=== PATIENT | female | born 1975 | race Caucasian/White ===

== ENCOUNTER 2016-06-26 13:41 | Emergency (ER) | payer OTHER | END 2016-06-26 16:17 | disposition home or self-care (01) | LOC: ER 13:41 | DX: S33.5XXA Sprain of ligaments of lumbar spine, initial encounter (principal); S13.4XXA Sprain of ligaments of cervical spine, initial encounter; S93.601A Unspecified sprain of right foot, initial encounter; W01.0XXA Fall on same level from slipping, tripping and stumbling without subsequent striking against object, initial encounter; Y92.019 Unspecified place in single-family (private) house as the place of occurrence of the external cause; J45.909 Unspecified asthma, uncomplicated; F17.210 Nicotine dependence, cigarettes, uncomplicated; M54.2 Cervicalgia; M54.9 Dorsalgia, unspecified; Z88.2 Allergy status to sulfonamides; Z88.6 Allergy status to analgesic agent; Z79.899 Other long term (current) drug therapy | CPT/HCPCS: 72040; 72100; 73620; 99283 ==

== ENCOUNTER 2016-09-08 13:22 | Emergency (ER) | payer OTHER ==
[2016-09-08 14:24] LABS: BASO # 0.1 10_X3_uL (0.0-0.1); BASO % 0.4 % (0.1-1.2); EOS # 0.2 10_X3_uL (0.0-0.4); EOS % 1.3 % (0.7-5.8); GRAN # 9.8 10_X3_uL (1.6-6.1); GRAN % 77.6 % (34.0-71.1); HEMATOCRIT 42.1 % (34-45); HEMOGLOBIN 14.4 g/dL (11.2-15.7); LYMPH # 1.9 10_X3_uL (1.2-3.7); LYMPH % 14.9 % (19.3-51.7); MEAN CORPUSCULAR HEMOGLOBIN 31.4 pg (27.0-33.0); MEAN CORPUSCULAR HGB CONC 34.2 g/dL (32.0-36.0); MEAN CORPUSCULAR VOLUME 91.9 fL (79-95); MEAN PLATELET VOLUME 9.6 fl (7.5-11.5); MONO # 0.7 10_X3_uL (0.2-0.9); MONO % 5.8 % (4.7-12.5); PLATELET COUNT 314 x10_3/uL (182-369); RED BLOOD COUNT 4.58 x10_6/uL (3.9-5.2); RED CELL DISTRIBUTION WIDTH 13.3 % (11.7-14.4); WHITE BLOOD COUNT 12.7 x10_3/uL (4.0-10.0)
[2016-09-08 14:38] LABS: ALBUMIN 4.6 gm/dL (3.4-5.0); ALKALINE PHOSPHATASE 54 U/L (50-136); ALT/SGPT 12 U/L (3.5-33.9); AMYLASE 43 U/L (15.62-74.58); AST/SGOT 14 U/L (7.04-26.96); BILIRUBIN,TOTAL 0.52 mg/dL (0.0-1.0); BLOOD UREA NITROGEN 9 mg/dL (7-18); CALCIUM 9.3 mg/dL (8.7-10.7); CARBON DIOXIDE 23 mmol/L (21-32); CREATININE 0.7 mg/dL (0.6-1.3); GLUCOSE,RANDOM 106 mg/dL (70-99); LIPASE 21 U/L (6.75-60.75); POTASSIUM 4.2 mmol/L (3.5-5.1); SODIUM 133 mmol/L (136-145); TOTAL PROTEIN 7.8 gm/dL (6.4-8.2)
== END 2016-09-08 17:40 | disposition home or self-care (01) ==
LOC: ER 13:22
PROVIDERS: Emergency Medicine
DX: R10.32 Left lower quadrant pain (principal); R10.31 Right lower quadrant pain; R11.0 Nausea; J45.909 Unspecified asthma, uncomplicated; Z98.51 Tubal ligation status; F17.210 Nicotine dependence, cigarettes, uncomplicated
CPT/HCPCS: 36415; 80053; 82150; 83690; 85025; 96372; 99070; 99284-25

== ENCOUNTER 2016-09-22 14:38 | Emergency (ER) | payer OTHER | END 2016-09-22 17:07 | disposition home or self-care (01) | LOC: ER 14:38 | DX: S40.012A Contusion of left shoulder, initial encounter (principal); S80.02XA Contusion of left knee, initial encounter; S90.32XA Contusion of left foot, initial encounter; S16.1XXA Strain of muscle, fascia and tendon at neck level, initial encounter; T14.8 Other injury of unspecified body region; V03.00XA Pedestrian on foot injured in collision with car, pick-up truck or van in nontraffic accident, initial encounter; M51.9 Unspecified thoracic, thoracolumbar and lumbosacral intervertebral disc disorder; F17.210 Nicotine dependence, cigarettes, uncomplicated; Z88.2 Allergy status to sulfonamides; Z88.6 Allergy status to analgesic agent; Z79.1 Long term (current) use of non-steroidal anti-inflammatories (NSAID); Z79.899 Other long term (current) drug therapy | CPT/HCPCS: 72040; 73030; 73564; 73630; 90471; 90715; 99283-25 ==